=== PATIENT | male | born 2000 | race Hispanic/Latino ===

== ENCOUNTER 2025-03-27 21:49 | Emergency (ER) | payer OTHER, SELFPAY ==
--- NOTE | ~2025-03-27 | XR_ITS ---
XR wrist LT 2V INDICATION: pain COMPARISON: None FINDINGS: Two views of the left wrist demonstrate no acute fracture or dislocation. IMPRESSION: No acute fracture or dislocation. Reviewed, dictated and finalized at location S.
--- NOTE | ~2025-03-27 | XR_ITS ---
XR tibia fibula RT 2V INDICATION: pain COMPARISON: None FINDINGS: Two views of the right tibia and fibula demonstrate no acute fracture or dislocation. IMPRESSION: No acute fracture or dislocation. Reviewed, dictated and finalized at location S.
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
--- NOTE | ~2025-03-27 | XR_ITS ---
XR humerus LT INDICATION: pain COMPARISON: None FINDINGS: Two views of the left humerus demonstrate no acute fracture or dislocation. IMPRESSION: No acute fracture or dislocation. Reviewed, dictated and finalized at location S.
[2025-03-27 21:52] VITALS: BP 123/74; PULSE 72; RESP 18; O2SAT 98
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
[2025-03-27] MEDS: IBUPROFEN 400 MG TABLET 800 MG PO (23:09)
[2025-03-27] MEDS: ACETAMINOPHEN 500 MG TABLET 1000 MG PO (23:10)
[2025-03-27 23:35] VITALS: BP 120/72; PULSE 75; RESP 18; TEMP 36.7; O2SAT 98
== END 2025-03-27 23:36 | disposition home or self-care (01) ==
PROVIDERS: Emergency Provider Student in an Organized Health Care Education/Training Program; PCP Family Medicine
DX: S60.812A Abrasion of left wrist, initial encounter (principal); M79.602 Pain in left arm; M79.604 Pain in right leg; V40.0XXA Car driver injured in collision with pedestrian or animal in nontraffic accident, initial encounter
CPT/HCPCS: 73060; 73070; 73100; 73590; 99284; A9270